=== PATIENT | female | born 1945 | race Caucasian/White ===

== ENCOUNTER 2021-02-22 10:17 | Outpatient (CLI) | payer MEDICARE | END 2021-02-22 10:18 | disposition home or self-care (01) | LOC: CSHMAMMO 10:17 | PROVIDERS: ATTEND Obstetrics & Gynecology | DX: Z12.31 Encounter for screening mammogram for malignant neoplasm of breast (principal) | CPT/HCPCS: 77063; 77067 ==

== ENCOUNTER 2022-01-07 09:29 | Outpatient (CLI) | payer MEDICARE | END 2022-01-07 09:30 | disposition home or self-care (01) | LOC: CSHRAD 09:29 | PROVIDERS: ATTEND Internal Medicine | DX: S16.1XXA Strain of muscle, fascia and tendon at neck level, initial encounter (principal); M47.812 Spondylosis without myelopathy or radiculopathy, cervical region; M48.54XA Collapsed vertebra, not elsewhere classified, thoracic region, initial encounter for fracture | CPT/HCPCS: 72040; 72070 ==

== ENCOUNTER 2022-01-14 14:01 | Outpatient (CLI) | payer MEDICARE | END 2022-01-14 14:02 | disposition home or self-care (01) | LOC: CSHCT 14:01 | PROVIDERS: ATTEND Internal Medicine | DX: M80.08XA Age-related osteoporosis with current pathological fracture, vertebra(e), initial encounter for fracture (principal); M54.6 Pain in thoracic spine; S22.080A Wedge compression fracture of T11-T12 vertebra, initial encounter for closed fracture; M47.814 Spondylosis without myelopathy or radiculopathy, thoracic region; E27.8 Other specified disorders of adrenal gland | CPT/HCPCS: 72128 ==

== ENCOUNTER 2022-02-23 09:55 | Outpatient (CLI) | payer MEDICARE | END 2022-02-23 09:56 | disposition home or self-care (01) | LOC: CSHMAMMO 09:55 | PROVIDERS: ATTEND Obstetrics & Gynecology | DX: Z12.31 Encounter for screening mammogram for malignant neoplasm of breast (principal) | CPT/HCPCS: 77063; 77067 ==

== ENCOUNTER 2023-06-05 13:10 | Outpatient (CLI) | payer MEDICARE | END 2023-06-05 13:11 | disposition home or self-care (01) | LOC: CSHMAMMO 13:10 | PROVIDERS: ATTEND Obstetrics & Gynecology | DX: Z12.31 Encounter for screening mammogram for malignant neoplasm of breast (principal) | CPT/HCPCS: 77063; 77067 ==

== ENCOUNTER 2024-06-10 11:37 | Outpatient (CLI) | payer MEDICARE | END 2024-06-10 11:38 | disposition home or self-care (01) | LOC: CSHMAMMO 11:37 | PROVIDERS: ATTEND Obstetrics & Gynecology | DX: Z12.31 Encounter for screening mammogram for malignant neoplasm of breast (principal) | CPT/HCPCS: 77063; 77067 ==

== ENCOUNTER 2025-06-17 11:54 | Outpatient (CLI) | payer MEDICARE | END 2025-06-17 11:55 | disposition home or self-care (01) | LOC: CSHMAMMO 11:54 | PROVIDERS: ATTEND Obstetrics & Gynecology | DX: Z12.31 Encounter for screening mammogram for malignant neoplasm of breast (principal) | CPT/HCPCS: 77063; 77067 ==